=== PATIENT | male | born 1995 | race Caucasian/White ===

== ENCOUNTER 2021-02-06 18:35 | Emergency (ER) | payer OTHER ==
[~2021-02-06] VITALS: Ht 193 cm; Wt 158.8 kg
[2021-02-06] MEDS ORDERED: IBUPROFEN 600 MG TAB PO ONE (20:45)
[2021-02-06] MEDS ORDERED: KETOROLAC TROMETH 60MG/2ML VIAL IM ONE (22:00)
[2021-02-06] MEDS ORDERED: methylPREDNISolone SOD SUCC 125 MG/2 ML VL IM ONE (22:00)
[2021-02-06] MEDS ORDERED: MORPHINE SULFATE INJECTION 2 MG/ML SYRG IM ONE (22:45)
[2021-02-06] MEDS ORDERED: BACLOFEN 10 MG TAB PO ONE (22:45)
[2021-02-06] MEDS ORDERED: ONDANSETRON ODT 4 MG TAB PO ONE (22:45)
[2021-02-06 23:36] VITALS: BP 114/88
[2021-02-06] MEDS ORDERED: MORPHINE SULFATE 4 MG/ML SYR/VIAL IV ONE (23:45)
[2021-02-06] MEDS ORDERED: ONDANSETRON HCL 4 MG/2 ML VIAL IV ONE (23:45)
[2021-02-07] MEDS ORDERED: MORPHINE SULFATE 4 MG/ML SYR/VIAL IV ONE (03:30)
== END 2021-02-07 04:57 | disposition home or self-care (01) ==
LOC: ER 18:39
DX: S33.5XXA Sprain of ligaments of lumbar spine, initial encounter (principal); M54.16 Radiculopathy, lumbar region; E66.9 Obesity, unspecified; Z68.41 Body mass index [BMI] 40.0-44.9, adult; X58.XXXA Exposure to other specified factors, initial encounter; Y93.89 Activity, other specified; Y92.89 Other specified places as the place of occurrence of the external cause; Y99.8 Other external cause status
CPT/HCPCS: 72100; 96372; 96374; 96375; 96376; 99284; J1885; J2270; J2405; J2930; Q0162